=== PATIENT | female | born 1930 | race Caucasian/White ===

== ENCOUNTER 2022-06-14 22:44 | Inpatient (IN) ==
[2022-06-14 23:13] LABS: ABS Monocytes 0.9 10^3/ul (0-0.8); ABS Neutrophils 8.7 10^3/ul (1.5-7.7); Eosinophil % 0.4 %; Hematocrit 34 % (35-47); Lymphocyte % 9.2 %; Mean Corpuscular HGB Conc 33 g/dL (31-36); Mean Corpuscular Hemoglobin 27 pg (27-31); Mean Corpuscular Volume 83 fL (80-97); Mean Platelet Volume 8.8 fL (7.4-10.4); Platelet Count 277 10^3/uL (150-450); Red Blood Count 4.06 10^6 /uL (3.70-4.87); Red Cell Distribution Width 15 % (10-15); White Blood Count 10.7 10^3/uL (3.5-10.8)
[2022-06-14 23:44] LABS: Albumin 3.8 g/dL (3.2-5.2); Albumin/Globulin Ratio 1.5 (1-3); C Reactive Protein 7.19 mg/L (<8.01); Calcium 9.6 mg/dL (8.6-10.3); Creatinine, Serum 1.56 mg/dL (0.51-0.95); Globulin 2.6 g/dL (2-4); Total Bilirubin 0.4 mg/dL (0.2-1.0); Total Protein 6.4 g/dL (6.4-8.9); eGFR CKD-EPI 31.6 (>60)
[2022-06-14 23:52] LABS: Potassium 5.2 mmol/L (3.5-5.0)
[2022-06-14] MEDS ORDERED: Furosemide 20 mg/2 ml IV VIAL IV ONE (23:56)
[2022-06-15 00:40] LABS: PCO2 Arterial 38 mmHg (35-45); PO2 Arterial 73 mmHg (80-100)
[2022-06-15 00:46] LABS: High Sensitivity Troponin 1 Hr 104 pg/mL (<15)
[2022-06-15] MEDS ORDERED: Dextrose 50% Syringe 50 ml 25 GM/50 ML SYRINGE IV PUSH PRN ×2 (04:09→04:11)
[2022-06-15] MEDS ORDERED: Albuterol HFA INHALER 8 gm MDI INH PRN (04:20)
[2022-06-15] MEDS ORDERED: Dextran 70/Hypromellose Tears Eye Drops 15 ml BTL (for Artificials Tears) BOTH EYES PRN (04:20)
[2022-06-15] MEDS ORDERED: Enoxaparin 40 MG/0.4 ML SYR SUBCUT SCH (06:00)
[2022-06-15] MEDS ORDERED: dilTIAZem 30 MG TAB PO SCH (06:00)
[2022-06-15 06:24] LABS: ABS Basophils 0.1 10^3/ul (0-0.2); ABS Monocytes 0.8 10^3/ul (0-0.8); ABS Neutrophils 5.5 10^3/ul (1.5-7.7); Eosinophil % 0.3 %; Hematocrit 30 % (35-47); Hemoglobin 9.7 g/dL (12.0-16.0); Lymphocyte % 13.9 %; Mean Corpuscular HGB Conc 32 g/dL (31-36); Mean Corpuscular Hemoglobin 27 pg (27-31); Mean Corpuscular Volume 83 fL (80-97); Mean Platelet Volume 8.1 fL (7.4-10.4); Platelet Count 246 10^3/uL (150-450); Red Blood Count 3.62 10^6 /uL (3.70-4.87); Red Cell Distribution Width 15 % (10-15); White Blood Count 7.3 10^3/uL (3.5-10.8)
[2022-06-15] MEDS: Furosemide 40 mg/4 ml IV VIAL IV SLOW PU SCH ×2 (06:29→14:12)
[2022-06-15 06:48] LABS: Creatinine, Serum 1.36 mg/dL (0.51-0.95); Potassium 4.7 mmol/L (3.5-5.0); eGFR CKD-EPI 37.2 (>60)
[2022-06-15] MEDS ORDERED: DAPAGLIFLOZIN 10 MG TAB (NF) PO SCH (09:00)
[2022-06-15] MEDS: Cholecalciferol (VIT D3) 1,000 unit TAB PO SCH (09:09)
[2022-06-15] MEDS: DULoxetine DR 30 mg CAP PO SCH (09:10)
[2022-06-15] MEDS: Insulin GLARGINE 100 un/ml 10 ml VIAL SUBCUT SCH (21:54)
[2022-06-16] MEDS ORDERED: Lactated Ringers 1000 ml BAG 500 ML IV ONE ×2 (01:18→02:28)
[2022-06-16 05:52] LABS: Hematocrit 29 % (35-47); Hemoglobin 9.4 g/dL (12.0-16.0); Mean Corpuscular HGB Conc 32 g/dL (31-36); Mean Corpuscular Hemoglobin 27 pg (27-31); Mean Corpuscular Volume 84 fL (80-97); Mean Platelet Volume 9.1 fL (7.4-10.4); Platelet Count 235 10^3/uL (150-450); Red Blood Count 3.48 10^6 /uL (3.70-4.87); Red Cell Distribution Width 15 % (10-15); White Blood Count 6.1 10^3/uL (3.5-10.8)
[2022-06-16 06:19] LABS: Calcium 8.8 mg/dL (8.6-10.3); Creatinine, Serum 1.53 mg/dL (0.51-0.95); Magnesium 1.6 mg/dL (1.9-2.7); Potassium 4.8 mmol/L (3.5-5.0); eGFR CKD-EPI 32.3 (>60)
[2022-06-16] MEDS: Furosemide 40 mg/4 ml IV VIAL IV SLOW PU SCH (07:09)
[2022-06-16] MEDS ORDERED: Magnesium Sulfate IV 3 GM in NS 0.9% 100 ml BAG 100 ML IVPB ONE (07:17)
[2022-06-16] MEDS: Cholecalciferol (VIT D3) 1,000 unit TAB PO SCH (08:56)
[2022-06-16] MEDS: DULoxetine DR 30 mg CAP PO SCH (08:59)
[2022-06-16] MEDS ORDERED: Furosemide 40 mg/4 ml IV VIAL IV SLOW PU SCH (09:00)
[2022-06-16] MEDS ORDERED: Furosemide 40 mg/4 ml IV VIAL IV ONE (09:57)
[2022-06-16] MEDS ORDERED: Dextran 70/Hypromellose Tears Eye Drops 15 ml BTL (for Artificials Tears) BOTH EYES PRN (12:18)
[2022-06-16] MEDS ORDERED: Furosemide 20 mg/2 ml IV VIAL IV ONE (16:59)
[2022-06-16] MEDS: Insulin GLARGINE 100 un/ml 10 ml VIAL SUBCUT SCH (19:51)
[2022-06-17 07:08] LABS: Hematocrit 32 % (35-47); Hemoglobin 10.3 g/dL (12.0-16.0); Mean Corpuscular HGB Conc 32 g/dL (31-36); Mean Corpuscular Hemoglobin 27 pg (27-31); Mean Corpuscular Volume 84 fL (80-97); Mean Platelet Volume 9.2 fL (7.4-10.4); Platelet Count 239 10^3/uL (150-450); Red Blood Count 3.81 10^6 /uL (3.70-4.87); Red Cell Distribution Width 15 % (10-15); White Blood Count 7.6 10^3/uL (3.5-10.8)
[2022-06-17 07:26] LABS: Calcium 9.2 mg/dL (8.6-10.3); Creatinine, Serum 1.63 mg/dL (0.51-0.95); Magnesium 2.4 mg/dL (1.9-2.7); Potassium 4.5 mmol/L (3.5-5.0)
[2022-06-17] MEDS: Polyethylene Glycol 3350 17 GM PACKET PO SCH (10:45)
[2022-06-17] MEDS: DULoxetine DR 30 mg CAP PO SCH (10:47)
[2022-06-17] MEDS: Cholecalciferol (VIT D3) 1,000 unit TAB PO SCH (10:47)
[2022-06-17] MEDS: Lidocaine PATCH 5% PATCH TRANSDERM SCH (12:22)
[2022-06-17] MEDS: Insulin GLARGINE 100 un/ml 10 ml VIAL SUBCUT SCH (19:52)
[2022-06-18 08:46] LABS: ABS Lymphocytes 0.8 10^3/ul (1.0-4.8); ABS Monocytes 1.4 10^3/ul (0-0.8); ABS Neutrophils 8.8 10^3/ul (1.5-7.7); Eosinophil % 0.1 %; Hematocrit 32 % (35-47); Hemoglobin 9.9 g/dL (12.0-16.0); Lymphocyte % 7.3 %; Mean Corpuscular HGB Conc 31 g/dL (31-36); Mean Corpuscular Hemoglobin 26 pg (27-31); Mean Corpuscular Volume 83 fL (80-97); Mean Platelet Volume 9.3 fL (7.4-10.4); Platelet Count 228 10^3/uL (150-450); Red Blood Count 3.81 10^6 /uL (3.70-4.87); Red Cell Distribution Width 15 % (10-15); White Blood Count 11.1 10^3/uL (3.5-10.8)
[2022-06-18 09:13] LABS: Calcium 9.2 mg/dL (8.6-10.3); Creatinine, Serum 1.67 mg/dL (0.51-0.95); Potassium 4.5 mmol/L (3.5-5.0); eGFR CKD-EPI 29.1 (>60)
[2022-06-18] MEDS: Lidocaine PATCH 5% PATCH TRANSDERM SCH (10:15)
[2022-06-18] MEDS: DULoxetine DR 30 mg CAP PO SCH (10:18)
[2022-06-18] MEDS: Cholecalciferol (VIT D3) 1,000 unit TAB PO SCH (10:19)
[2022-06-18] MEDS: Polyethylene Glycol 3350 17 GM PACKET PO SCH ×2 (10:26→10:29)
[2022-06-18 11:43] LABS: Urine Appearance Cloudy; Urine Bilirubin Negative (Negative); Urine Blood 2+ (Negative); Urine Color Yellow; Urine Glucose Negative (Negative); Urine Ketones Negative (Negative); Urine Nitrite Negative (Negative); Urine Protein Negative (Negative); Urine Specific Gravity 1.012 (1.002-1.030); Urine Urobilinogen Negative (Negative)
[2022-06-18 11:48] LABS: Urine Bacteria Absent (Absent); Urine Red Blood Cell 3+(>10/hpf) (Absent); Urine Squamous Epithelial Cell Present (Absent); Urine White Blood Cell Trace(0-5/hpf) (Absent)
[2022-06-18 14:35] VITALS: BP 140/70
== END 2022-06-18 17:32 | disposition home or self-care (01) | DRG 280 ==
LOC: ED 22:44 → SUATTDRO 06-15 02:39 → EDHOLD 06-15 02:39 → MEDTELE 06-16 00:15
PROVIDERS: ADMIT Student in an Organized Health Care Education/Training Program; ATTEND Internal Medicine